=== PATIENT | male | born 1960 | race Caucasian/White ===

== ENCOUNTER 2021-11-07 11:08 | Emergency (ER) | payer OTHER ==
[~2021-11-07 11:08] MED LIST: AMOXICILLIN875 MG PO; HYDROCODON-ACE1 EAC4 PO
[2021-11-07 12:06] LABS: BASOPHIL 0.3 % (0-2); EOSINOPHIL 0.9 % (0-5); HCT 47.6 % (42.0-52.0); HGB 16.1 g/dl (13.2-18.0); LYMPHOCYTE 6.7 % (15-48); MCH 31.9 pg (25.0-31.0); MCHC 33.8 g/dL (32.0-36.0); MCV 94.4 fL (78.0-100.0); MONOCYTE 6.6 % (0-12); MPV 9.8 fL (6.0-9.5); NRBC 0; PLT 189 K/uL (150-400); RBC 5.04 M/uL (4.70-6.00); RDW 12.8 % (11.5-14.0); WBC 10.1 K/uL (4.0-10.5)
[2021-11-07 12:32] LABS: BILIRUBIN - TOTAL 1.2 mg/dL (0.2-1.0); BUN/CREAT RATIO (CALC) 16.9 RATIO; CREATININE 1.18 mg/dL (0.67-1.17); GLOBULIN (CALCULATION) 3.3 g/dL; POTASSIUM 3.9 mmol/L (3.5-5.1); TOTAL PROTEIN 7.3 g/dL (6.4-8.2)
[2021-11-07 13:35] LABS: BILIRUBIN 1+ mg/dL (NEGATIVE); BLOOD 3+ Ery/uL (NEGATIVE); CLARITY TURBID (CLEAR); COLOR BROWN (YELLOW); GLUCOSE (U) NORMAL (NORMAL); LEUKOCYTES TRACE Leu/uL (NEGATIVE); NITRITE POSITIVE (NEGATIVE); PROTEIN 3+ mg/dL (NEGATIVE); SPECIFIC GRAVITY >=1.030 (1.001-1.030); pH 6.5 (5.0-9.0)
[2021-11-07 14:17] LABS: AMORPHOUS URATES CRYSTALS MODERATE; BACTERIA 1+; MUCOUS TRACE; RENAL EPITHELIAL CELLS RARE; URINARY RBC TNTC
[2021-11-07] MEDS ORDERED: CIPRO500 MG PO (14:24)
== END 2021-11-07 13:18 | disposition home or self-care (01) ==
LOC: FER 11:08
PROVIDERS: Emergency Medicine
DX: N20.0 Calculus of kidney (principal); Z88.8 Allergy status to other drugs, medicaments and biological substances
CPT/HCPCS: 36415; 80053; 81001; 82150; 83690; 85025